=== PATIENT | female | born 1980 | race Two or more races ===

== ENCOUNTER 2018-04-25 16:01 | Emergency (ER) | payer MEDICAID ==
[~2018-04-25] VITALS: Ht 157.5 cm; Wt 58.1 kg
[2018-04-25 16:15] VITALS: BP 130/74
[2018-04-25] MEDS ORDERED: Ketorolac 30mg Inj IM ONE (16:45)
[2018-04-25 17:11] LABS: APPEARANCE,URINE SLIGHTLY CLOUDY; BILIRUBIN, URINE NEGATIVE (NEGATIVE); COLOR,URINE PALE YELLOW; GLUCOSE, URINE (UA) NEGATIVE (NEGATIVE); KETONES,URINE NEGATIVE (NEGATIVE); LEUKOCYTE ESTERASE ,URINE 3+ (NEGATIVE); NITRITE,URINE NEGATIVE (NEGATIVE); PH,URINE 6 (4.5-8.0); PROTEIN,URINE NEGATIVE (NEGATIVE); UROBILINOGEN,URINE NORMAL MG/DL (0.0-1.0)
--- NOTE | 2018-04-25 17:17 | Emergency Room Report ---
History of Present Illness General Chief Complaint: Back Pain-No Injury Source: Patient Present Illness HPI 37-year-old female presents to the emergency department complaining of 10 out of 10 in severity low back pain bilaterally but primarily on the right side. Patient reports her pain has been progressive since this morning she denies any strenuous activities today or heavy lifting. Patient states that yesterday she was doing a lot of bending over and cleaning. Patient states on occasion she' ll have some mild low back pain but never this bad. She denies acute onset of her symptoms and describes gradual progression. Patient denies hematuria, urinary frequency or urgency. She denies . Patient states the pain is constant and does not radiate. Patient denies trauma or fall, midline neck or back pain.Denies numbness tingling or loss of sensation or gross motor movements of the extremities, incontinence of bowel or bladder. Denies CP, Palpitations, LOC, AMS, dizziness, Changes in Vision, weakness or a sudden severe headache. Patient denies history of renal calculi, cancer or recent spinal procedures. Allergies: Coded Allergies: No Known Allergies (Unverified , 04/25/18) Patient History Past Medical History: see triage record Past Surgical History: none Pertinent Family History: none Now: No Reviewed Nursing Documentation: PMH: Agreed; PSxH: Agreed Nursing Documentation-PMH Past Medical History: No Stated History Review of Systems All Other Systems: negative except mentioned in HPI Physical Exam Vital Signs Date Time Temp Pulse Resp B/P (MAP) Pulse Ox O2 Delivery O2 Flow Rate FiO2 04/25/18 16:10 97.9 82 19 130/74 96 Room Air Sp02 EP Interpretation: reviewed, normal General Appearance: alert, GCS 15, non-toxic, mild distress Head: normocephalic, atraumatic Eyes: bilateral eye normal inspection, bilateral eye PERRL ENT: hearing grossly normal, normal voice Neck: full range of motion Respiratory: lungs clear, normal breath sounds, speaking full sentences Cardiovascular #1: regular rate, rhythm Gastrointestinal: non tender, soft Genitourinary: normal inspection, no CVA tenderness Musculoskeletal: back normal, gait/station normal, normal range of motion, tender - Paraspinal TTP in Lumbar musculature R>L, and upper gluteal musculature , no midline spinous process ttp, no bruises, obvious deformities or step-offs. pt. is ambulatoy with a cautious gait/ movements. Neurologic: alert, oriented x3, responsive, motor strength/tone normal, sensory intact, speech normal, grossly normal Psychiatric: judgement/insight normal Skin: normal color, no rash, warm/dry, well hydrated Medical Decision Making PA Attestation Dr. Dickerson is my supervising Physician whom patient management has been discussed with. Diagnostic Impression: Primary Impression: UTI (urinary tract infection) Qualified Codes: N30.01 - Acute cystitis with hematuria Additional Impression: Lumbosacral strain Qualified Codes: S39.012A - Strain of muscle, fascia and tendon of lower back , initial encounter ER Course 37-year-old female presents to the emergency department complaining of 10 out of 10 in severity low back pain bilaterally but primarily on the right side. Patient reports her pain has been progressive since this morning she denies any strenuous activities today or heavy lifting. Patient states that yesterday she was doing a lot of bending over and cleaning. Patient states on occasion she' ll have some mild low back pain but never this bad. She denies acute onset of her symptoms and describes gradual progression. Patient denies hematuria, urinary frequency or urgency. She denies . Patient states the pain is constant and does not radiate. Patient denies trauma or fall, midline neck or back pain.Denies numbness tingling or loss of sensation or gross motor movements of the extremities, incontinence of bowel or bladder. Denies CP, Palpitations, LOC, AMS, dizziness, Changes in Vision, weakness or a sudden severe headache. Patient denies history of renal calculi, cancer or recent spinal procedures. Ddx considered: epidural abscess, fracture, sprain/strain, meningitis, spinal chord injury, sciatica, cauda equina, Pyelonephritis, renal calculi just to name a few. Vital signs reviewed and are WNL during ED visit. Pt. is afebrile with no signs of infection, most PE signs are consistent with muscle strain, superficial symptoms, however will do UA. No saddle anesthesia noted, Pt. denies incontinence Neurovascular is intact ROM is limited due to pain ORDERS:- UA : Elevated RBC's WBC's, leukocytes and presence of bacteria consistent infection in the urinary tract, low suspicion for calculi or pyelo due to negative CVA tenderness, and pain being constant in nature radiating across the low back. Pt. is NAD and non-toxic in appearance. INTERVENTIONS: - 20mg IM Toradol - Soma PO D/W Pt. Rest at home, warm compresses, and NSAIDS. D/w pt. about taking muscle relaxers and avoiding driving or drinking alcohol. The discussed with patient proper body mechanics when bending over, reaching or lifting things. I also discussed with this patient that it is very likely that she may have symptoms similar in the future she has not careful/mindful while doing certain activities. D/w pt. to also finish abx completely and to follow up with her PCP. d/w pt. to return to the ED with worsening or new symptoms such as worsening of her pain, development of fevers or in ability to tolerate oral medications. DISCHARGE: At this time pt. is stable for d/c to home. Will provide printed patient care instructions, and any necessary prescriptions. Care plan and follow up instructions have been discussed with the patient prior to discharge. Labs Test 04/25/18 16:50 Urine Color Pale yellow Urine Appearance Slightly cloudy Urine pH 6 (4.5-8.0) Urine Specific [place] 1.020 (1.005-1.035) Urine Protein Negative (NEGATIVE) Urine Glucose (UA) Negative (NEGATIVE) Urine Ketones Negative (NEGATIVE) Urine Blood 3+ (NEGATIVE) Urine Nitrite Negative (NEGATIVE) Urine Bilirubin Negative (NEGATIVE) Urine Urobilinogen Normal MG/DL (0.0-1.0) Urine Leukocyte Esterase 3+ (NEGATIVE) Urine RBC 10-15 /HPF (0 - 2) Urine WBC 15-20 /HPF (0 - 2) Urine Squamous Epithelial Cells Moderate /LPF (NONE/OCC) Urine Bacteria Few /HPF (NONE) Last Vital Signs Date Time Temp Pulse Resp B/P (MAP) Pulse Ox O2 Delivery O2 Flow Rate FiO2 04/25/18 16:15 97.9 87 19 130/74 96 Room Air Disposition: HOME, SELF-CARE Condition: Stable Scripts Ibuprofen* (MOTRIN*) 600 Mg Tablet 600 MG ORAL THREE TIMES A DAY, #30 TAB 0 Refills Prov: Carmen Glynn 04/25/18 Methocarbamol* (ROBAXIN-750*) 750 Mg Tablet 750 MG PO QID for 7 Days, #28 TAB 0 Refills Prov: Carmen Glynn 04/25/18 Nitrofurantoin Monohyd/M-Cryst* (MACROBID 100 MG*) 100 Mg Capsule 100 MG ORAL EVERY 12 HOURS for 5 Days, #10 CAP Prov: Carmen Glynn 04/25/18 Patient Instructions: Sciatica, Back Pain, Adult Additional Instructions: Take medications as directed. Follow up with a Primary Care Provider in 3-5 days, even if your symptoms have resolved. --Please review list of primary care clinics, if you do not already have a primary care provider Return sooner to ED if new symptoms occur, or current symptoms become worse. Do not drink alcohol, drive, or operate heavy machinery while taking Robaxin ( Muscle Relaxers) as this may cause drowsiness. - Please note that this Emergency Department Report was dictated using [employer] team physician technology software, occasionally this can lead to erroneous entry secondary to interpretation by the dictation equipment. Carmen Glynn Apr 25, 2018 17:17
[2018-04-25] MEDS ORDERED: ROBAXIN-750750 MG PO (17:33)
[2018-04-25] MEDS ORDERED: IBUPROFEN600 MG ORAL (17:33)
[2018-04-25] MEDS ORDERED: NITROFURANTOIN100 M2 ORAL (17:33)
[2018-04-25 17:54] VITALS: BP 122/85
== END 2018-04-25 17:45 | disposition home or self-care (01) ==
LOC: EMR 17:45
DX: N39.0 Urinary tract infection, site not specified (principal); S39.012A Strain of muscle, fascia and tendon of lower back, initial encounter; X50.1XXA Overexertion from prolonged static or awkward postures, initial encounter; Y92.9 Unspecified place or not applicable
CPT/HCPCS: 81003; 87086; 96372; 99283; J1885